=== PATIENT | female | born 1940 | race Caucasian/White ===

== ENCOUNTER 2019-08-15 12:18 | Observation (INO) | payer MEDICARE, MEDICAID, SELFPAY ==
[2019-08-15] VITALS (16 sets, daily range): BP systolic 127–193; BP diastolic 55–109; PULSE 61–120; RESP 12–20; TEMP 36.4–37; O2SAT 96–100; BMI 29.7; BMI 29.3
--- NOTE | ~2019-08-15 | XR_ITS ---
EXAMINATION: XR chest 2V EXAM DATE: 08/15/2019 12:47 INDICATION: Syncope, palpitation, shortness of breath. TECHNIQUE: Frontal and lateral projections of the chest obtained and reviewed. Comparison is made to prior examination from 11/25/2014, 12/05/2011. FINDINGS: There is patchy bibasilar airspace disease, most likely bronchopneumonia. Please clinically correlate. Cardiomediastinal silhouette is normal. There is no pneumothorax suspected. There are no pleural effusions. There are bony degenerative changes. IMPRESSION: Patchy bibasilar airspace disease probably bronchopneumonia. Clinical correlation. Reviewed, dictated and finalized at location A. IMPRESSION: Patchy bibasilar airspace disease probably bronchopneumonia. Clini margo correlation.
--- NOTE | 2019-08-15 12:23 | ECG_ITS ---
Measurements Intervals [place] Rate: 134 P: 73 DE: 180 QRS: -6 QRSD: 68 T: 45 QT: 329 QTc: 492 Interpretive Statements SINUS RHYTHM WITH SHORT RUNS OF ATRIAL TACHYCARDIA RSR' IN V1 OR V2, CONSIDER RIGHT VENTRICULAR HYPERTROPHY OR RIGHT VCD BASELINE ARTIFACT- I, II, III, AVR, AVL, AVF, V1-V2 ABNORMAL ECG Electronically Signed On 08-15-2019 13:52:38 CDT by Dickson Ware D.O.
--- NOTE | 2019-08-15 12:26 | ED.ARRPALP ---
HPI - Arrhythmia/Palpitations General Chief Complaint: Arrhythmia/Palpitations Stated Complaint: SOB Time Seen by Provider: 08/15/19 12:24 Source: patient and RN notes reviewed Mode of arrival: EMS Limitations: no limitations History of Present Illness HPI narrative: Pt is a 79 y/o female who presents to the ED via EMS with c/o intermittent heart palpitations starting roughly 2 weeks ago. She notes that she has had intermittent SOB and palpitations for the past 2 weeks. Pt describes her palpitations as a thudding in her chest, and notes that her heart feels like it is skipping beats. She notes that she developed palpitations and lightheadedness while at home this morning, which prompted her family to call EMS. Pt states that her symptoms are currently resolved while in the ED bed. She also reports recent lower ABD pain and urinary frequency, but denies any CP. Pt states that she was recently placed on a heart monitor, and notes that it showed no significant abnormalities. MD complaint: skipped beats Onset (ago): week(s) (2) Duration: intermittent Associated symptoms: shortness of breath and other (lightheadedness; lower ABD pain; urinary frequency) Related Data Home Medications Medication Instructions Recorded Confirmed B Complex 08/15/19 Fish Oil Concentrate 08/15/19 Vitamin D3 08/15/19 aspirin [Aspirin Childrens] 81 mg PO DAILY 08/15/19 08/15/19 levothyroxine DAILY 08/15/19 Allergies Allergy/AdvReac Type Severity Reaction Status Date / Time Sulfa (Sulfonamide Allergy Mild Rash Verified 08/15/19 13:55 Antibiotics) Review of Systems Review of Systems: All systems reviewed & are unremarkable except as noted in HPI and below Cardiovascular: Cardiovascular: Denies chest pain and Reports palpitations Respiratory: Respiratory: Reports dyspnea Gastrointestinal: Gastrointestinal: Reports abdominal pain (lower ABD pain) Genitourinary: Genitourinary: Reports other (urinary frequency) Neurologic: Reports other (lightheadedness) [facility] Past Medical History Medical History Back pain History of palpitations Hypothyroidism Surgical History Surgical History History of hysterectomy Hx of appendectomy Social History Social History Smoking status: Never smoker Gender identity (if verbalized by the patient): Female Exam Const: General: healthy appearing and no acute distress Nutritional Appearance: well nourished Resp: Effort & Inspection: normal respiratory effort Auscultation: clear to auscultation bilaterally Cardio: Rate: regular rate Rhythm: regular rhythm Heart sounds: no murmurs GI: GI Palp: Yes Soft to palpation and No Tenderness to palpation present (GI) Auscultation: normal bowel sounds Back/Spine/Pelvis: Back: other (Full ROM) Skin: General skin exam: normal color, dry skin and other (warm) Neuro: General: patient oriented x3 (alert) Speech: normal speech Extrem: General: full ROM Psych: Mental Status: mental status grossly normal Affect: normal affect Course Consultations Consultation #1: Discussed case with [employer] to flight test engineer, Pilar Jeong. She will see the pt as a consult. Date: 08/15/19 Time: 13:23 Consultation #2: Discussed case with [employer] to hospitalist, Oksana Sanchez. Accepted admission. Date: 08/15/19 Time: 13:48 Vital Signs Vital signs: Vital Signs Temperature 36.4 C 08/15/19 12:24 Pulse Rate 95 08/15/19 12:24 Respiratory Rate 12 08/15/19 12:24 Blood Pressure 193/96 H 08/15/19 12:24 Pulse Oximetry 99 08/15/19 12:24 Temperature 36.4 C 08/15/19 12:24 Pulse Rate 80 08/15/19 13:31 Respiratory Rate 13 08/15/19 13:31 Blood Pressure 148/72 H 08/15/19 13:31 Pulse Oximetry 98 08/15/19 13:31 MDM - Arrhythmia/Palpitations MDM Narrative Medical decision making narrative: on my exam she had
[2019-08-15 13:11] LABS: Basophils Percent Auto 0.5 % (0.2-1.2); Eosinophils Absolute Auto 0.1 K/mm3 (0-0.3); Eosinophils Percent Auto 1.1 % (0-4.4); Hematocrit 43.6 % (37.0-47.0); Hemoglobin 14.9 g/dL (12.0-15.0); Immature Granulocyte Absolute 0.03 K/mm3 (0.00-0.031); Immature Granulocyte Percent A 0.4 % (0-0.5); Lymphocytes Absolute Auto 1.53 K/mm3 (0.9-3.2); Lymphocytes Percent Auto 17.9 % (18.3-44.2); Mean Corpuscular HGB Conc 34.2 g/dl (32-36); Mean Corpuscular Hemoglobin 30.1 pg (26-34); Mean Corpuscular Volume 88.1 fl (80-100); Mean Platelet Volume 11.1 fl (7.4-10.4); Monocytes Absolute Auto 0.7 K/mm3 (0.1-0.6); Monocytes Percent Auto 7.7 % (2.6-8.5); Neutrophils Absolute Auto 6.2 K/mm3 (1.3-6.7); Neutrophils Percent Auto 72.4 % (45.5-73.1); Platelet Count Result 185 k/mm3 (150-375); Red Blood Count 4.95 M/mm3 (4.2-5.4); Red Cell Distribution Width 13.7 % (11.5-14.5); White Blood Count 8.6 K/mm3 (4.5-10.0)
[2019-08-15 13:18] LABS: INR 0.9; Prothrombin Time 12.1 Seconds (11.1-14.7)
[2019-08-15 13:19] LABS: Partial Thromboplastin Time 26.1 SECONDS (22.3-36.8)
[2019-08-15 13:21] LABS: Blood Urea Nitrogen 15 mg/dL (7-17); Calcium 9.5 mg/dL (8.4-10.2); Carbon Dioxide 25 mmol/L (22-30); Chloride 108 mmol/L (98-107); Estimated CRCL calculation 73 ml/min; Estimated Glomerular Filt Rate > 60; Glucose 112 mg/dL (65-105); Potassium 4.2 mmol/L (3.4-5.0); Sodium 139 mmol/L (137-145)
[2019-08-15 13:33] LABS: Troponin I < 0.012 ng/mL (0.000-0.034)
[2019-08-15] MEDS: DILTIAZEM HCL 30 MG TABLET PO (14:15)
--- NOTE | 2019-08-15 15:49 | ADMGEN ---
This patient, Brandy Omalley, was admitted to IMU Room 214-01. Patient/family oriented to hospital policies and general routines including ID bracelet, bed and alarms, visiting hours, pain management, procedures, bathroom and other care routines, personal items, smoking policy, room service/diet, and visiting hours. Valuables list has been completed. Information on how to activate the Rapid Response Team has been discussed. Patient/Family are encouraged to report perceived risks to care and to ask questions if they do not understand what they are told or what they should do.
[2019-08-15 16:57] LABS: Troponin I < 0.012 ng/mL (0.000-0.034)
--- NOTE | 2019-08-15 17:15 | PM.IMHP ---
H&P: HPI History of Present Illness Chief complaint: atrial fibrillation with rvr Narrative: Brandy Omalley is a 79 year old female With a history of hypothyroidism. She has been complaining of some intermittent heart palpitations that started roughly 2 weeks ago. She had some intermittent shortness of breath as well. The patient stated that she irregular heartbeat a long time ago when she had some problems with her thyroid. She said what she started thyroid medicine a [place] level now. She has not had any past history of atrial fibrillation. She said she had an echo recently but was not sure the exact date. Patient was found to be in AFib RVR in the emergency room and was given 1 dose of IV Cardizem. Cardiology has been consulted. She has a chads Vasc score of 3. Patient is now sinus rhythm. Date of service 08/15/2019 Chest x-ray was read as patchy bibasilar airspace disease probably bronchial pneumonia. Clinical correlation. Patient has no fever and no chills no white count. Does not appear to be pneumonia. She has no cough. Patient stated that she felt a little dizzy earlier and felt like she was going to pass out. She was also short of breath but had no chest pain. Review of Systems Review of Systems: All systems reviewed & are unremarkable except as noted in HPI and below Constitutional: Constitutional: Reports as per HPI and Reports no additional constitutional complaints Eyes: Eyes: Reports as per HPI and Reports no additional eye complaints ENT: Reports system reviewed and no additional complaints, except as documented and Reports Normal hearing present Cardiovascular: Cardiovascular: Reports no additional cardiovascular complaints Respiratory: Respiratory: Reports no additional respiratory complaints and Reports no additional respiratory complaints Gastrointestinal: Gastrointestinal: Reports as per HPI and Reports no additional gastrointestinal complaints Musculoskeletal: Musculoskeletal: Reports no additional musculoskeletal complaints Integumentary/Breasts: Skin/Breast: Reports system reviewed and no additional complaints, except as docu and Reports as per HPI Neurologic: Reports system reviewed and no additional complaints, except as documented, Reports as per HPI and Reports Normal hearing present Psychiatric: Psychiatric: Reports no additional psychiatric complaints and Reports as per HPI Endocrine: Endocrine: Reports no additional endocrine complaints Hematologic/Lymphatic: Hematologic/Lymphatic: Reports no additional hematologic/lymphatic complaints Allergic/Immunologic: Allergic/Immunologic: Reports no additional allergic/immunologic complaints [facility] Past Medical History Medical History (Updated 08/15/19 @ 17:20 by Oksana Sanchez NP) Back pain Fractured hip She had a small crack which was not repaired. History of palpitations Hypothyroidism Surgical History Surgical History History of hysterectomy Hx of appendectomy Family History Family History (Updated 08/15/19 @ 17:21 by Oksana Sanchez NP) Mother Autoimmune adrenal atrophy Thyroid disease Father Pancreatic cancer COPD (chronic obstructive pulmonary disease) Sibling Heart disease Social History Social History (Updated 08/15/19 @ 17:22 by Oksana Sanchez NP) Social History: Patient had lifelong exposure to smoke but did not smoke herself. She has 3 sons. She does not have a power commercial attorney. She desires to be a full code. 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 No alcohol or illicit drugs. Her sister staying with her at this time. Smoking status: Never smoker Second hand tobacco smoke exposure: Yes Alcohol intake: never Substance use: never Substance use type: does not use Living arrangements: with family Occupation/Education: retired Gender identity (if verbalized by the patient): Female Spiritual care concerns: No Agree to bloo
--- NOTE | 2019-08-15 17:42 | PM.CNCAR ---
Assessment and Plan Assessment and plan (1) Atrial fibrillation: Qualifiers: Atrial fibrillation type: paroxysmal Qualified Code(s): I48.0 - Paroxysmal atrial fibrillation Code(s): I48.91 - Unspecified atrial fibrillation Status: Acute Assessment and Plan: Back in sinus rhythm. She has a chads Vasc score of 3 given her age and gender. She has a chads score of 1. I did talk about the risks benefits alternatives and she is agreeable to starting anticoagulation. She has very low bleeding risk. I did talk to her about other anticoagulants also she is agreeable to start Xarelto 20 mg p.o. daily. I will start her on metoprolol tartrate 25 mg p.o. b.i.d. Will check a TSH as well as a free T4 level. 2D echocardiogram Doppler will be ordered and reviewed. Anticipate discharge home tomorrow morning. Outpatient stress testing and follow up with Dr. Jaramillo She also does not need fish oil nor aspirin if she starts on anticoagulation. He relatively should be discontinued. Continue levothyroxine and vitamin-D (2) Hypothyroidism: Code(s): E03.9 - Hypothyroidism, unspecified Status: Chronic Assessment and Plan: Will check a T4 level. History of Present Illness History of Present Illness Consult date/time: 08/15/19 17:42 Requesting physician: Oksana Sanchez NP Consult reason: atrial fibrillation Reason For Visit: atrial fibrillation with rvr Narrative: Date of service 08/15/2019 Reason for visit atrial fibrillation History: Patient is an 79-year-old female patient of Dr. Jaramillo who had a history of palpitations. Over the past 2 weeks he has had pretty consistent thumping in her chest. Her symptoms are worsened with exertion and she would feel presyncopal with significant activity. She would rest her symptoms would improve. She would also have some significant shortness of breath at the same time. No syncope. Patient does have some lower extremity edema which is under different has been present for about 10 years. She denies any paroxysmal nocturnal dyspnea, orthopnea, syncope. No exertional chest pain. She came to the hospital and was found to be in atrial fibrillation with rapid ventricular response. She was given diltiazem in her rhythm converted back to sinus rhythm here she currently remains. She currently feels fine. She has a chads Vasc score 3 Review of Systems Review of Systems: All systems reviewed & are unremarkable except as noted in HPI and below Constitutional: Constitutional: Denies chills Eyes: Eyes: Denies blurry vision ENT: Denies tinnitus Cardiovascular: Cardiovascular: Reports palpitations Respiratory: Respiratory: Denies cough Gastrointestinal: Gastrointestinal: Denies bloating Genitourinary: Genitourinary: Denies flank pain Musculoskeletal: Musculoskeletal: Denies back pain Integumentary/Breasts: Skin/Breast: Denies dry skin Neurologic: Denies headache(s) Psychiatric: Psychiatric: Denies anxiety and Denies confusion Endocrine: Endocrine: Denies fatigue Hematologic/Lymphatic: Hematologic/Lymphatic: Denies easy bruising Allergic/Immunologic: Allergic/Immunologic: Denies lip swelling PMFSH Past Medical History Medical History Back pain Fractured hip She had a small crack which was not repaired. History of palpitations Hypothyroidism Surgical History Surgical History History of hysterectomy Hx of appendectomy Family History Family History Mother Autoimmune adrenal atrophy Thyroid disease Father Pancreatic cancer COPD (chronic obstructive pulmonary disease) Sibling Heart disease Social History Social History Social History: Patient had lifelong exposure to smoke but did not smoke herself. She has 3 so
[2019-08-15] MEDS: RIVAROXABAN 20 MG TABLET PO (18:56)
[2019-08-15 19:33] LABS: Troponin I < 0.012 ng/mL (0.000-0.034)
[2019-08-15 19:52] LABS: Free T4 Free Thyroxine 0.74 ng/mL (0.78-2.19)
[2019-08-15] MEDS: METOPROLOL TARTRATE 25 MG TABLET PO (20:40)
[2019-08-16] VITALS (8 sets, daily range): BP systolic 113–118; BP diastolic 47; PULSE 60–70; RESP 16–20; TEMP 36.6; O2SAT 93–99
--- NOTE | 2019-08-16 | ECHO_ITS ---
Patient Info Name: Brandy Omalley Age: 79 years : 1940 Gender: Female Ht: 70 in Wt: 202 lbs BSA: 2.15 m2 HR: 62 bpm BP: 113 / 47 mmHg Heart Rhythm: Sinus Rhythm Technical Quality: Good Exam Date: 08/16/2019 9:23 AM Exam Location: [facility] Patient Status: Inpatient Admit Date: 08/15/2019 Staff Ordering Physician: Clive Reagan MD Sergeant Of Officers: Deni Wood RDCS Attending Provider: Viridiana Zaldivar PA-C Referring Physician: Merary SAUER; Exam Type: CA echo doppler color flow Study Info Indications I48.0 - Paroxysmal atrial fibrillation Complete two-dimensional, color flow and Doppler transthoracic echocardiogram is performed. History/Risk Factors Atrial Fibrillation. Summary 1. Left ventricular chamber dimension is normal. 2. Left ventricular systolic function is normal, estimated at >70%. 3. There is mildly increased left ventricular wall thickness. 4. Left ventricular septal wall motion is normal. 5. The left ventricular diastolic function is grade I diastolic dysfunction. 6. Left atrial chamber dimension is mildly enlarged. 7. There is mild aortic valve calcification. 8. There is mild aortic valve regurgitation. 9. There is mild tricuspid valve regurgitation. Left Ventricle Left ventricular chamber dimension is normal. Left ventricular systolic function is normal, estimated at >70%. There is mildly increased left ventricular wall thickness. Left ventricular septal wall motion is normal. The left ventricular diastolic function is grade I diastolic dysfunction. Right Ventricle Right ventricular chamber dimension is normal. Right ventricular systolic function is normal. Left Atria Left atrial chamber dimension is mildly enlarged. Right Atria Right atrial chamber dimension is normal. Aortic Valve The aortic valve is trileaflet. There is no aortic valve stenosis. There is mild aortic valve regurgitation. There is mild aortic valve calcification. Pulmonic Valve The pulmonic valve is normal. There is no pulmonic valve stenosis. There is trace pulmonic regurgitation. Mitral Valve The mitral valve has calcified annulus. There is no mitral valve stenosis. There is trace mitral valve regurgitation. Tricuspid Valve The tricuspid valve leaflets are normal. There is no significant tricuspid valve stenosis. There is mild tricuspid valve regurgitation. No pulmonary hypertension, estimated pulmonary arterial systolic pressure is 33 mmHg. Pericardium/Pleural The pericardium appears epicardial fat pad. There is no pericardial effusion. Aorta The aortic root size at the sinus of Valsalva is normal. Left Ventricular Outflow Tract Name Value Normal LVOT 2D LVOT Diameter 1.7 cm LVOT Doppler LVOT Peak Gradient 6 mmHg LVOT Mean Gradient 3 mmHg LVOT VTI 24 cm LVOT VTI/AV VTI Ratio 0.7 LVOT Stroke Volume 56 ml LVOT CO 3.6 l/min LVOT
[2019-08-16 05:13] LABS: Basophils Absolute Auto 0.1 K/mm3 (0.0-0.1); Basophils Percent Auto 0.8 % (0.2-1.2); Eosinophils Absolute Auto 0.1 K/mm3 (0-0.3); Eosinophils Percent Auto 1.8 % (0-4.4); Hematocrit 37.7 % (37.0-47.0); Hemoglobin 12.7 g/dL (12.0-15.0); Immature Granulocyte Absolute 0.01 K/mm3 (0.00-0.031); Immature Granulocyte Percent A 0.2 % (0-0.5); Lymphocytes Absolute Auto 1.43 K/mm3 (0.9-3.2); Lymphocytes Percent Auto 22.9 % (18.3-44.2); Mean Corpuscular HGB Conc 33.7 g/dl (32-36); Mean Corpuscular Volume 89.1 fl (80-100); Monocytes Absolute Auto 0.5 K/mm3 (0.1-0.6); Monocytes Percent Auto 8.5 % (2.6-8.5); Neutrophils Absolute Auto 4.1 K/mm3 (1.3-6.7); Neutrophils Percent Auto 65.8 % (45.5-73.1); Platelet Count Result 174 k/mm3 (150-375); Red Blood Count 4.23 M/mm3 (4.2-5.4); White Blood Count 6.2 K/mm3 (4.5-10.0)
[2019-08-16] MEDS: LEVOTHYROXINE SODIUM 112 MCG TABLET BY MOUTH (05:38)
[2019-08-16] MEDS: LEVOTHYROXINE SODIUM 25 MCG TABLET BY MOUTH (05:38)
[2019-08-16 05:41] LABS: Alanine Aminotransferase 16 U/L (4-35); Albumin Level 3.4 g/dL (3.5-5.1); Alkaline Phosphatase 72 U/L (38-126); Aspartate Amino Transferase 18 U/L (14-36); Bilirubin,Total 0.5 mg/dL (0.2-1.3); Blood Urea Nitrogen 17 mg/dL (7-17); Calcium 8.7 mg/dL (8.4-10.2); Carbon Dioxide 26 mmol/L (22-30); Chloride 108 mmol/L (98-107); Estimated CRCL calculation 66 ml/min; Estimated Glomerular Filt Rate > 60; Glucose 96 mg/dL (65-105); Magnesium 2.1 mg/dL (1.6-2.3); Potassium 3.8 mmol/L (3.4-5.0); Sodium 138 mmol/L (137-145)
[2019-08-16] MEDS: METOPROLOL TARTRATE 25 MG TABLET PO (10:24)
[2019-08-16] MEDS: ASPIRIN 81 MG CHEWABLE TABLET PO (10:24)
--- NOTE | 2019-08-16 10:46 | PM.PNCARD ---
Progress Note: A&P Assessment and Plan (1) Atrial fibrillation: Qualifiers: Atrial fibrillation type: paroxysmal Qualified Code(s): I48.0 - Paroxysmal atrial fibrillation Code(s): I48.91 - Unspecified atrial fibrillation Status: Acute Assessment and Plan: Patient is stable to go home. She should remain on Xarelto 20 mg p.o. daily as well as metoprolol 25 mg p.o. b.i.d.. Discontinue fish oil as well as aspirin. Continue levothyroxine. Outpatient follow-up with Dr. PERDOMO. OUTPATIENT STRESS TESTING PERFORMED (2) Hypothyroidism: Code(s): E03.9 - Hypothyroidism, unspecified Status: Chronic Subjective Date/time seen: Reason for admission: Atrial fibrillation Date of service 08/16/2019: She feels well and denies any chest pain or shortness of breath. No palpitations. Review of Systems Review of Systems: All systems reviewed & are unremarkable except as noted in HPI and below Constitutional: Constitutional: Denies chills, Denies fatigue and Denies headache(s) Eyes: Eyes: Denies blurry vision ENT: Denies headache(s), Denies lip swelling and Denies tinnitus Cardiovascular: Cardiovascular: Reports palpitations Respiratory: Respiratory: Denies cough Gastrointestinal: Gastrointestinal: Denies bloating Genitourinary: Genitourinary: Denies flank pain Musculoskeletal: Musculoskeletal: Denies back pain Integumentary/Breasts: Skin/Breast: Denies dry skin Neurologic: Denies confusion and Denies headache(s) Psychiatric: Psychiatric: Denies anxiety and Denies confusion Endocrine: Endocrine: Denies fatigue and Reports palpitations Hematologic/Lymphatic: Hematologic/Lymphatic: Denies easy bruising Allergic/Immunologic: Allergic/Immunologic: Denies lip swelling Exam Narrative: Exam Narrative: Alert oriented Const: General: comfortable; No confusion Orientation/consciousness: No confusion HENMT: Mouth: No dry mucous membranes Eyes: Sclera: abnormal sclerae Neck: Neck: supple and no JVD Chest: Other: No chest wall pain on palpation Resp: Auscultation: clear to auscultation bilaterally Cardio: Rate: regular rate Rhythm: regular rhythm Skin: General skin exam: normal color Neuro: General: No confusion Cognition (Neuro): normal cognition Speech: normal speech Extrem: General: normal to inspection, normal exam except as noted, no edema and no pedal edema Psych: Mental Status: mental status grossly normal Affect: normal affect Objective Data Vital Signs Vital Signs: Vital Signs - 24 hr 08/15/19 12:24 08/15/19 12:26 08/15/19 12:30 Temperature 36.4 C Pulse Rate 95 120 H Respiratory Rate 12 13 Blood Pressure 193/96 H 193/96 H Pulse Oximetry 99 99 99 08/15/19 12:31 08/15/19 13:00 08/15/19 13:16 Temperature Pulse Rate 90 85 80 Respiratory Rate 13 14 12 Blood Pressure 176/109 H 137/70 145/80 H Pulse Oximetry 99 100 99 08/15/19 13:30 08/15/19 13:31 08/15/19 14:58 Temperature Pulse Rate 72 80 71 Respiratory Rate 14 13 19 Blood Pressure 148/72 H 133/71 Pulse Oximetry 99 98 96 08/15/19 15:43 08/15/19 16:00 08/15/19 18:00 Temperature 36.7 C 37.0 C Pulse Rate 74 70 83 Respiratory Rate 20 18 Blood Pressure 130/56 L 131/55 L Pulse Oximetry 96 98 08/15/19 20:00 08/15/19 20:40 08/15/19 22:00 Temperature 37.0 C Pulse Rate 71 71 71 Respiratory Rate 18 Blood Pressure 131/55 L Pulse Oximetry 98 08/15/19 23:56 08/16/19 00:00 08/16/19 01:24 Temperature 36.4 C Pulse Rate 61 63 62 Respiratory Rate 20 20 Blood Pressure 127/61 Pulse Oximetry 97 97 08/16/19 03:59 08/16/19 04:00 08/16/19 06:00 Temperature 36.6 C Pulse Rate 60 68 60 Respiratory Rate 20 20 Blood Pressure 113/47 L Pulse Oximetry 97 99 08/16/19 08:00 08/16/19 10:24 Temperature 36.6 C Pulse Rate 63 62 Respiratory Rate 16 Blood Pressure 118/47 L Pulse Oximetry 93 Intake/Output Intake/Output: Intake & Output
--- NOTE | 2019-08-16 12:16 | PM.DS ---
DS: Diagnosis Admitting Diagnosis Admitting Diagnosis: Paroxysmal atrial fibrillation Discharge Diagnosis (1) Atrial fibrillation: Qualifiers: Atrial fibrillation type: paroxysmal Qualified Code(s): I48.0 - Paroxysmal atrial fibrillation Code(s): I48.91 - Unspecified atrial fibrillation Status: Acute Assessment and Plan: The patient had symptoms of palpitations with associated dizziness and presyncopal episode. Denies syncope. She was given IV Cardizem in the emergency room and converted back into normal sinus rhythm. She was initially started on subcu Lovenox for anticoagulation. Normal TSH Echocardiogram is still pending but the wildlife refuge manager has evaluated. Cardiology evaluated the patient and started her on metoprolol tartrate 25 mg b.i.d. and Xarelto 20 mg daily Cardiology recommended discontinuing the patient's aspirin and fish oil. She will follow-up with the wildlife refuge manager as outpatient for further evaluation. (2) Hypothyroidism: Code(s): E03.9 - Hypothyroidism, unspecified Status: Chronic Assessment and Plan: Normal TSH. Continue levothyroxine (3) Back pain: Code(s): M54.9 - Dorsalgia, unspecified Status: Chronic Assessment and Plan: Patient is currently not on any medication at this time. DS: Summary Hospital Course Reason for hospitalization: The patient is an 79-year-old woman with a history of hypothyroidism, who presented to the emergency department with intermittent episodes of palpitations over the last year so with more frequent episodes and associated symptoms of lightheadedness, shortness of breath over the last 1 week. Initial vitals showed, temperature of 97.6?, blood pressure 193/96, heart rate 95, respiratory rate 12, oxygen saturation 99% on room air. Initial labs showed, normal CBC, normal coag panel, normal BMP. Negative troponin x2. Normal TSH in slightly low T4 at 0.74. Chest x-ray showed bilateral airspace disease probably bronchial pneumonia, but the patient has no symptoms of productive cough, fever, chills, shortness of breath now that she is back in normal sinus rhythm. The patient was found to be in atrial fibrillation on arrival to the emergency department. The patient was given IV Cardizem and converted back into normal sinus rhythm. Cardiology place her on metoprolol tartrate 25 mg twice a day and Xarelto. The patient understands agrees the plan at this time all questions answered. Status at Discharge Cognitive/behavioral status at discharge: Stable, improved. Time Spent with Patient Time attestation: Total time spent providing and/or coordinating discharge services: Time spent: Greater than 30 minutes Exam Narrative: Exam Narrative: General: 79-year-old woman laying flat in bed watching TV. Appears comfortable. In no acute distress. Skin: No jaundice or cyanosis. Good skin turgor. Neck: Full range of motion. Supple. Respiratory: Lungs are clear to auscultation bilaterally. No bony chest wall tenderness. Cardiovascular: The heart has a regular rate and rhythm without murmur. Lower extremities: No lower extremity edema. Distal pulses are easily palpated. No calf tenderness to palpation. Gastrointestinal: The abdomen is soft, nontender and nondistended with active bowel sounds. Psychiatric: Lucid and oriented. Memory intact. Neurologic: No focal deficits. Speech is clear. No facial drooping. DS: Data Data Completed and Pending Labs on day of discharge: Labs from last 24 hours 08/16/19 08/16/19 08/16/19 04:32 04:32 04:32 WBC 6.2 RBC 4.23 Hgb 12.7 Hct 37.7 MCV 89.1 MCH 30.0 MCHC 33.7 RDW 14.0 Plt Count 174 MPV 11.0 H Immature Gran % (Auto) 0.2 Neut % (Auto) 65.8 Lymph % (Auto) 22.9 [place] % (Auto) 8.5 Eos
== END 2019-08-16 14:15 | disposition home or self-care (01) ==
LOC: ANHED 13:59 → ANHIMU 14:40
PROVIDERS: Emergency Medicine; Internal Medicine Cardiovascular Disease; Nurse Practitioner; Admitting Provider Internal Medicine; Emergency Provider Emergency Medicine; Visit Provider Physician Assistant
DX: I48.0 Paroxysmal atrial fibrillation (principal); E03.9 Hypothyroidism, unspecified; M54.9 Dorsalgia, unspecified
CPT/HCPCS: 36415; 71046; 80048; 80053; 83735; 84439; 84443; 84484; 85025; 85610; 85730; 93005; 93306; 96374; 96376; 99285; A9270; G0378

== ENCOUNTER 2019-08-23 10:05 | Emergency (ER) | payer MEDICARE, MEDICAID, SELFPAY ==
--- NOTE | ~2019-08-23 | XR_ITS ---
EXAMINATION: XR chest 2V DATE: 08/23/2019 10:54 INDICATION: Chest heaviness and shortness of breath TECHNIQUE: PA and lateral views of the chest are obtained. COMPARISON: 08/15/2019 FINDINGS: The lungs are free of acute opacities. Previously described bibasilar airspace opacities chacko ve resolved. There is no pleural effusion or pneumothorax. The cardiomediastinal silhouette is normal . There is moderate thoracic spondylosis. IMPRESSION: 1. No acute cardiopulmonary abnormality. Reviewed, dictated and finalized at location B.
[2019-08-23 10:14] VITALS: BP 183/76; PULSE 57; RESP 12; TEMP 37; O2SAT 98
--- NOTE | 2019-08-23 10:42 | ED.ARRPALP ---
HPI - Arrhythmia/Palpitations General Chief Complaint: Arrhythmia/Palpitations <April Gerene PA-C - Last Filed: 08/23/19 14:56> Stated Complaint: PALPITATIONS <AMANDA Hemphill Last Filed: 08/23/19 14:56> Time Seen by Provider: 08/23/19 10:21 <AMANDA Hemphill Last Filed: 08/23/19 14:56> Source: patient <AMANDA Hemphill Last Filed: 08/23/19 14:56> Mode of arrival: EMS <AMANDA Hemphill Last Filed: 08/23/19 14:56> Limitations: no limitations <AMANDA Hemphill Last Filed: 08/23/19 14:56> History of Present Illness HPI narrative: This is an 79 year old female that presents to the ER for palpitations since last night. Reports she was hospitalized here and diagnosed with Afib recently. Reports she was started on Metoprolol and a blood thinner. Reports since she had been feeling much better, but last night again started to feel thudding in her chest, some heaviness and shortness of breath. Reports these symptoms lasted all night. Reports now she just doesn't feel well overall. Does also report some urinary frequency that has been ongoing for the last week. Denies fever, cough, congestion, sore throat, dysuria or hematuria. <April Greene PA-C - Last Filed: 08/23/19 14:56> Related Data Home Medications: Home Medications Medication Instructions Recorded Confirmed cholecalciferol (vitamin D3) 1,000 unit PO DAILY 08/15/19 08/15/19 [Vitamin D3] levothyroxine 137 mcg PO DAILY 08/15/19 08/15/19 vitamin B complex-folic acid [B 1 tablet PO DAILY 08/15/19 08/15/19 Complex 100] <AMANDA Hemphill Last Filed: 08/23/19 14:56> Allergies/Adverse Reactions: Allergies Allergy/AdvReac Type Severity Reaction Status Date / Time Sulfa (Sulfonamide Allergy Mild Rash Verified 08/15/19 13:55 Antibiotics) <AMANDA Hemphill Last Filed: 08/23/19 14:56> Review of Systems Review of Systems: Narrative: CONSTITUTIONAL: Denies fever, chills ENT: Denies rhinorrhea, congestion, sore throat CARDIOVASCULAR: Reports palpitations. Denies chest pain or edema. RESPIRATORY: Reports dyspnea. Denies cough GENITOURINARY: Denies dysuria or hematuria. NEUROLOGIC: Denies numbness, or weakness. <April Greene PA-C - Last Filed: 08/23/19 14:56> All systems reviewed & are unremarkable except as noted in HPI and below <April Greene PA-C - Last Filed: 08/23/19 14:56> [facility] Past Medical History Medical History: Medical History (Updated 08/23/19 @ 14:56 by April Greene PA-C) Atrial fibrillation Back pain Fractured hip She had a small crack which was not repaired. History of palpitations Hypothyroidism <April Greene PA-C - Last Filed: 08/23/19 14:56> Surgical History Surgical History: Surgical History History of hysterectomy Hx of appendectomy <April Greene PA-C - Last Filed: 08/23/19 14:56> Social History Social History: Social History Social History: Patient had lifelong exposure to smoke but did not smoke herself. She has 3 sons. 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 She desires to be a full code. 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 No alcohol or illicit drugs. Her sister staying with her at this time. Smoking status: Never smoker Second hand tobacco smoke exposure: Yes Alcohol intake: never Substance use: never Substance use type: does not use Gender identity (if verbalized by the patient): Female Spiritual care concerns: No Agree to blood products: Yes <April Greene PA-C - Last Filed: 08/23/19 14:56> Exam Narrative: Exam Narrative: GENERAL: Elderly, well-nourished, and in no acute distress. HEAD: Normocephalic, atraumatic. EYES: PERRLA and EOMI. ENT: Nares clear, no rhinorrhea or epistaxis. Mucous membranes moist. Oropharynx without tonsillar hy
[2019-08-23 10:47] VITALS: BP 173/76; PULSE 56; RESP 13; TEMP 36.7; O2SAT 98
--- NOTE | 2019-08-23 10:51 | ECG_ITS ---
Measurements Intervals [place] Rate: 55 P: 45 DE: 175 QRS: -27 QRSD: 78 T: 23 QT: 423 QTc: 407 Interpretive Statements SINUS BRADYCARDIA LOW QRS VOLTAGE IN PRECORDIAL LEADS BASELINE ARTIFACT- I, III, AVR, AVL, AVF, V4 BORDERLINE ECG Electronically Signed On 08-23-2019 10:58:45 CDT by Dickson Ware D.O.
--- NOTE | 2019-08-23 10:51 | PC.NURSE ---
pt to xray via stretcher
[2019-08-23 11:00] LABS: Basophils Absolute Auto 0.1 K/mm3 (0.0-0.1); Basophils Percent Auto 0.8 % (0.2-1.2); Eosinophils Absolute Auto 0.1 K/mm3 (0-0.3); Eosinophils Percent Auto 2.2 % (0-4.4); Hematocrit 40.2 % (37.0-47.0); Hemoglobin 13.5 g/dL (12.0-15.0); Immature Granulocyte Absolute 0.03 K/mm3 (0.00-0.031); Immature Granulocyte Percent A 0.5 % (0-0.5); Lymphocytes Absolute Auto 0.99 K/mm3 (0.9-3.2); Lymphocytes Percent Auto 16.4 % (18.3-44.2); Mean Corpuscular HGB Conc 33.6 g/dl (32-36); Mean Corpuscular Hemoglobin 30.1 pg (26-34); Mean Corpuscular Volume 89.5 fl (80-100); Mean Platelet Volume 10.9 fl (7.4-10.4); Monocytes Absolute Auto 0.4 K/mm3 (0.1-0.6); Monocytes Percent Auto 6.1 % (2.6-8.5); Neutrophils Absolute Auto 4.5 K/mm3 (1.3-6.7); Platelet Count Result 211 k/mm3 (150-375); Red Blood Count 4.49 M/mm3 (4.2-5.4); Red Cell Distribution Width 13.6 % (11.5-14.5)
[2019-08-23 11:07] LABS: Blood Urea Nitrogen 13 mg/dL (7-17); Calcium 9.3 mg/dL (8.4-10.2); Carbon Dioxide 25 mmol/L (22-30); Chloride 106 mmol/L (98-107); Estimated CRCL calculation 76 ml/min; Estimated Glomerular Filt Rate > 60; Glucose 108 mg/dL (65-105); Potassium 4.2 mmol/L (3.4-5.0); Sodium 139 mmol/L (137-145)
[2019-08-23 11:09] LABS: INR 1.2; Prothrombin Time 14.4 Seconds (11.1-14.7)
[2019-08-23 11:10] LABS: Partial Thromboplastin Time 30.5 SECONDS (22.3-36.8)
[2019-08-23 11:15] LABS: Add Urine Microscopic? YES; Appearance Urine Clear (Clear); Bacteria Urine Trace /hpf; Bilirubin Urine Negative (Negative); Blood Urine Negative (Negative); Color Urine Straw (Yellow); Glucose Urine UA Negative (Negative); Ketones Urine Negative (Negative); Leukocyte Esterase Ur Trace LEU/UL (Negative); Mucus Urine Rare /lpf; Nitrate Urine Negative (Negative); Protein Urine Negative (Negative); RBC Urine 0-2 /hpf (0-2); Specific Grav Ur 1.011 (1.001-1.035); Squamous Epithelial Cell Urine Few /hpf (Few); Urobilinogen Urine Negative mg/dL (<2.0); WBC Urine 0-3 /hpf
[2019-08-23 11:20] LABS: NT Pro B Type Natriuretic Pept 127 PG/ML (5-100); Troponin I < 0.012 ng/mL (0.000-0.034)
[2019-08-23 12:39] VITALS: BP 152/60; PULSE 54; RESP 18; O2SAT 96
[2019-08-23 14:17] LABS: Troponin I < 0.012 ng/mL (0.000-0.034)
[2019-08-23 15:24] VITALS: BP 148/70; PULSE 55; RESP 14; O2SAT 96
== END 2019-08-23 15:25 | disposition home or self-care (01) ==
PROVIDERS: Physician Assistant; Emergency Provider Emergency Medicine
DX: R00.2 Palpitations (principal); I48.91 Unspecified atrial fibrillation; R06.02 Shortness of breath; Z79.01 Long term (current) use of anticoagulants; E03.9 Hypothyroidism, unspecified; Z77.22 Contact with and (suspected) exposure to environmental tobacco smoke (acute) (chronic); R00.1 Bradycardia, unspecified; R94.31 Abnormal electrocardiogram [ECG] [EKG]
CPT/HCPCS: 36415; 71046; 80048; 81001; 83880; 84484; 85025; 85610; 85730; 93005; 99284

== ENCOUNTER 2019-10-10 18:41 | Emergency (ER) | payer MEDICARE, MEDICAID, SELFPAY ==
[2019-10-10] VITALS (7 sets, daily range): BP systolic 118–197; BP diastolic 60–77; PULSE 54–68; RESP 14–18; TEMP 36.7; O2SAT 97–99
--- NOTE | ~2019-10-10 | XR_ITS ---
EXAMINATION: XR chest 1V portable EXAM DATE: 10/10/2019 19:51 INDICATION: Shortness of breath, headache. TECHNIQUE: Portable AP frontal chest x-ray was obtained. Comparison is made to prior examination from 08/23/2019. FINDINGS: The lungs are clear. There are no pleural effusions. Cardiac silhouette is prominent but magnified on this AP technique. There is no pneumothorax suspected. The bones and soft tissues are unremarkable. IMPRESSION: Unremarkable chest x-ray exam. Reviewed, dictated and finalized at location A.
--- NOTE | 2019-10-10 18:55 | ECG_ITS ---
Measurements Intervals [place] Rate: 62 P: 25 MT: 152 QRS: -10 QRSD: 79 T: 31 QT: 383 QTc: 390 Interpretive Statements SINUS RHYTHM CONSIDER INFERIOR INFARCT, AGE INDETERMINATE ABNORMAL ECG Electronically Signed On 10-11-2019 7:09:02 CDT by Dickson Ware D.O.
--- NOTE | 2019-10-10 19:46 | ED.GENADULT ---
HPI - General Adult General Chief complaint: Shortness of Breath/Dyspnea Stated complaint: sob Time Seen by Provider: 10/10/19 19:03 Source: patient and family Mode of arrival: ambulatory Limitations: no limitations History of Present Illness HPI narrative: This patient is an 79 year old female who presents to ER for evaluation of shortness of breath. Patient states she noticed dull bandlike headache along forehead and mu-ism this morning. She checked her blood pressure afterwards and she found her blood pressure was elevated. She also noticed this morning she seemed to be short of breath. This shortness of breath lasted 5 hours but it has since resolved. She denies associated fever, cough, wheezing, edema. She also denies dizziness, visual changes or focal weakness. She called her haunted history tour guide and discussed her symptoms, and she was told to come to ER for evaluation. She states she feels much better now. She only has mild headache. She is concerned because she has not felt well since she was diagnosed with atrial fibrillation in july. She reports fatigue , difficulty sleeping since. She has constant chest heaviness since she was diagnosed with afib. She denies any trauma , melena or bloody stools. Onset (ago): day(s) Location: head Severity scale (1-10): 5 Quality: dull Associated symptoms: malaise Related Data Home Medications Medication Instructions Recorded Confirmed cholecalciferol (vitamin D3) 1,000 unit PO DAILY 08/15/19 08/15/19 [Vitamin D3] levothyroxine 137 mcg PO DAILY 08/15/19 08/15/19 vitamin B complex-folic acid [B 1 tablet PO DAILY 08/15/19 08/15/19 Complex 100] escitalopram oxalate 10 mg PO 10/10/19 lisinopril 5 mg PO 10/10/19 omeprazole 40 mg PO 10/10/19 Allergies Allergy/AdvReac Type Severity Reaction Status Date / Time Sulfa (Sulfonamide Allergy Mild Rash Verified 10/10/19 18:54 Antibiotics) Review of Systems Review of Systems: All systems reviewed & are unremarkable except as noted in HPI and below Constitutional: Constitutional: Denies chills, Reports fatigue and Denies fever(s) Eyes: Eyes: Reports no additional eye complaints and Denies change in vision ENT: Denies dysphagia, Denies dizziness, Denies epistaxis, Denies nasal congestion and Denies sore throat Cardiovascular: Cardiovascular: Reports chest pain (chronic), Denies rapid heart rate, Denies radiating jaw, neck or arm pain and Denies slow heart rate Respiratory: Respiratory: Denies chest congestion, Denies cough, Reports dyspnea and Denies wheezing Gastrointestinal: Gastrointestinal: Denies abdominal pain, Denies diarrhea (change in stool), Denies nausea and Denies vomiting Genitourinary: Genitourinary: Denies abnormal vaginal bleeding, Denies hematuria and Denies flank pain Musculoskeletal: Musculoskeletal: Denies back pain and Denies myalgias Neurologic: Denies vertigo, Denies dizziness, Reports headache(s), Denies focal weakness and Denies numbness PMFSH Past Medical History Medical History Atrial fibrillation Back pain Fractured hip She had a small crack which was not repaired. History of palpitations Hypothyroidism Surgical History Surgical History History of hysterectomy Hx of appendectomy Family History Family History Mother Autoimmune adrenal atrophy Thyroid disease Father Pancreatic cancer COPD (chronic obstructive pulmonary disease) Sibling Heart disease Social History Social History Social History: Patient had lifelong exposure to smoke but did not smoke herself. She has 3 sons. She does not have a power business attorney. She desires to be a full code. 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 No alcohol or illicit drugs. Her sister staying with her at this t
[2019-10-10 19:52] LABS: Basophils Percent Auto 0.6 % (0.2-1.2); Eosinophils Absolute Auto 0.1 K/mm3 (0-0.3); Hematocrit 40.9 % (37.0-47.0); Hemoglobin 13.8 g/dL (12.0-15.0); Immature Granulocyte Absolute 0.01 K/mm3 (0.00-0.031); Immature Granulocyte Percent A 0.2 % (0-0.5); Lymphocytes Absolute Auto 1.23 K/mm3 (0.9-3.2); Lymphocytes Percent Auto 24.3 % (18.3-44.2); Mean Corpuscular HGB Conc 33.7 g/dl (32-36); Mean Corpuscular Hemoglobin 30.6 pg (26-34); Mean Corpuscular Volume 90.7 fl (80-100); Mean Platelet Volume 11.6 fl (7.4-10.4); Monocytes Absolute Auto 0.5 K/mm3 (0.1-0.6); Monocytes Percent Auto 9.5 % (2.6-8.5); Neutrophils Absolute Auto 3.2 K/mm3 (1.3-6.7); Neutrophils Percent Auto 63.4 % (45.5-73.1); Platelet Count Result 168 k/mm3 (150-375); Red Blood Count 4.51 M/mm3 (4.2-5.4); White Blood Count 5.1 K/mm3 (4.5-10.0)
[2019-10-10 20:01] LABS: INR 0.9
[2019-10-10] MEDS: METOPROLOL TARTRATE 50 MG TAB 25 MG PO (20:05)
[2019-10-10 20:13] LABS: Blood Urea Nitrogen 14 mg/dL (7-17); Calcium 9.3 mg/dL (8.4-10.2); Carbon Dioxide 23 mmol/L (22-30); Chloride 107 mmol/L (98-107); Estimated CRCL calculation 59 ml/min; Estimated Glomerular Filt Rate > 60; Glucose 109 mg/dL (65-105); Sodium 137 mmol/L (137-145)
[2019-10-10 20:14] LABS: Alanine Aminotransferase 19 U/L (4-35); Albumin Level 4.4 g/dL (3.5-5.1); Alkaline Phosphatase 62 U/L (38-126); Aspartate Amino Transferase 23 U/L (14-36); Bilirubin,Total 0.3 mg/dL (0.2-1.3); Lipase 74 U/L (23-300)
[2019-10-10 20:17] LABS: NT Pro B Type Natriuretic Pept 108 PG/ML (5-100); Troponin I < 0.012 ng/mL (0.000-0.034)
[2019-10-10 20:35] LABS: Add Urine Microscopic? YES; Appearance Urine Clear (Clear); Bilirubin Urine Negative (Negative); Blood Urine Negative (Negative); Color Urine Yellow (Yellow); Glucose Urine UA Negative (Negative); Ketones Urine Negative (Negative); Leukocyte Esterase Ur Trace LEU/UL (Negative); Mucus Urine Rare /lpf; Nitrate Urine Negative (Negative); Protein Urine Negative (Negative); RBC Urine 0-2 /hpf (0-2); Specific Grav Ur 1.014 (1.001-1.035); Squamous Epithelial Cell Urine Occasional /hpf (Few); Urobilinogen Urine Negative mg/dL (<2.0); WBC Urine 0-3 /hpf
[2019-10-11 13:38] LABS: SARS-CoV-2 RNA PCR Negative
== END 2019-10-10 21:38 | disposition home or self-care (01) ==
PROVIDERS: Emergency Provider General Practice; PCP Family Medicine
DX: I10 Essential (primary) hypertension (principal); R53.83 Other fatigue; Z20.828 Contact with and (suspected) exposure to other viral communicable diseases; Z77.22 Contact with and (suspected) exposure to environmental tobacco smoke (acute) (chronic); I48.91 Unspecified atrial fibrillation; E03.9 Hypothyroidism, unspecified; R94.31 Abnormal electrocardiogram [ECG] [EKG]
CPT/HCPCS: 36415; 71045; 80048; 80076; 81001; 83690; 83880; 84484; 85025; 85610; 85730; 87635; 93005; 96374; 99284; A9270; C9803; J0131; U0003

== ENCOUNTER 2019-11-03 18:20 | Emergency (ER) | payer MEDICARE, MEDICAID, SELFPAY ==
--- NOTE | ~2019-11-03 | XR_ITS ---
EXAMINATION: XR chest 2V DATE: 11/03/2019 20:51 INDICATION: Shortness of breath and abdominal discomfort TECHNIQUE: frontal and lateral views of the chest were obtained. COMPARISON: Chest radiograph dated 10/10/2019 FINDINGS: The lungs remain clear with no focal airspace opacities, pulmonary edema, pleural effusion or pneumot horax. The cardiomediastinal silhouette is normal. Moderate thoracic spondylosis. IMPRESSION: 1. No acute cardiopulmonary disease. Reviewed, dictated and finalized at location A.
--- NOTE | ~2019-11-03 | CT_ITS ---
EXAMINATION: CT brain wo con DATE: 11/03/2019 19:40 INDICATION: Chronic headache TECHNIQUE: Computed tomography (CT) of the head was performed without intravenous contrast. Sagittal and coronal reconstructions were performed. The mA was adjusted according to patient size. Iterative reconstruction technique was employed. The dose-length product was 605.33 mGy-cm. COMPARISON: Brain MR dated 10/03/2017 FINDINGS: No acute intracranial hemorrhage, acute infarction or abnormal extra axial fluid collection. Ventricl es are normal and symmetric. No mass/mass effect. Changes of bilateral intraocular lens replacement. The orbits, paranasal sinuses and mastoid air cells are normal. Intracranial calcified cerebral ather osclerosis is noted. IMPRESSION: 1. Normal aging brain. No acute intracranial process. Reviewed, dictated and finalized at location A.
--- NOTE | 2019-11-03 18:24 | ECG_ITS ---
Measurements Intervals [place] Rate: 61 P: 50 MO: 162 QRS: -9 QRSD: 78 T: 30 QT: 398 QTc: 403 Interpretive Statements SINUS RHYTHM NORMAL ECG Electronically Signed On 11-04-2019 7:07:54 CDT by Dickson Ware D.O.
[2019-11-03 18:42] VITALS: BP 188/89; PULSE 66; RESP 16; RESP 18; TEMP 36.9; O2SAT 98
[2019-11-03 18:44] LABS: Basophils Percent Auto 0.6 % (0.2-1.2); Eosinophils Absolute Auto 0.1 K/mm3 (0-0.3); Eosinophils Percent Auto 1.4 % (0-4.4); Hematocrit 37.7 % (37.0-47.0); Hemoglobin 13.1 g/dL (12.0-15.0); Immature Granulocyte Absolute 0.02 K/mm3 (0.00-0.031); Immature Granulocyte Percent A 0.4 % (0-0.5); Lymphocytes Absolute Auto 1.27 K/mm3 (0.9-3.2); Lymphocytes Percent Auto 25.8 % (18.3-44.2); Mean Corpuscular HGB Conc 34.7 g/dl (32-36); Mean Corpuscular Hemoglobin 31.3 pg (26-34); Mean Corpuscular Volume 90.2 fl (80-100); Mean Platelet Volume 11.2 fl (7.4-10.4); Monocytes Absolute Auto 0.5 K/mm3 (0.1-0.6); Monocytes Percent Auto 9.5 % (2.6-8.5); Neutrophils Absolute Auto 3.1 K/mm3 (1.3-6.7); Neutrophils Percent Auto 62.3 % (45.5-73.1); Platelet Count Result 171 k/mm3 (150-375); Red Blood Count 4.18 M/mm3 (4.2-5.4); Red Cell Distribution Width 14.6 % (11.5-14.5); White Blood Count 4.9 K/mm3 (4.5-10.0)
[2019-11-03 18:57] LABS: Blood Urea Nitrogen 11 mg/dL (7-17); Calcium 9.3 mg/dL (8.4-10.2); Carbon Dioxide 24 mmol/L (22-30); Chloride 107 mmol/L (98-107); Estimated CRCL calculation 75 ml/min; Estimated Glomerular Filt Rate > 60; Glucose 99 mg/dL (65-105); Potassium 3.9 mmol/L (3.4-5.0); Sodium 137 mmol/L (137-145)
--- NOTE | 2019-11-03 19:14 | ED.GENADULT ---
HPI - General Adult General Chief complaint: Unspecified Stated complaint: SOB, ABD pain Time Seen by Provider: 11/03/19 19:01 History of Present Illness HPI narrative: Patient presents with her son for multiple complaints. She has had shortness of breath some chest palpitations for 2 days. Not associated with fever sweats or wheezes. No coughing. She has a history of A. fib and is on Xarelto. She has diarrhea from the amoxicillin for 1 day. For yellow stools today. Making normal urine. She has a headache that is been going on for months. It is global without visual changes. She gives the headache pain 7 out of 10. she has bilateral ear pain left greater than right today it is only a 1 out of 10. She started amoxicillin yesterday for this. She used to have headaches infrequently, but now it is every day. She occasionally has dizziness. She complains of weight loss in the last couple months, and tells me her father of pancreatic cancer. She does not smoke drink or do drugs. 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 She has a history of hysterectomy and appendectomy. Related Data Home Medications Medication Instructions Recorded Confirmed cholecalciferol (vitamin D3) 1,000 unit PO DAILY 08/15/19 08/15/19 [Vitamin D3] levothyroxine 137 mcg PO DAILY 08/15/19 08/15/19 vitamin B complex-folic acid [B 1 tablet PO DAILY 08/15/19 08/15/19 Complex 100] lisinopril 10 mg PO 10/10/19 omeprazole 40 mg PO 10/10/19 amoxicillin 11/03/19 calcium carbonate [Tums] 200 mg PO BID 11/03/19 lorazepam 0.5 mg PO BID 11/03/19 Allergies Allergy/AdvReac Type Severity Reaction Status Date / Time Sulfa (Sulfonamide Allergy Mild Rash Verified 11/03/19 18:55 Antibiotics) Review of Systems Review of Systems: Narrative: CONSTITUTIONAL: Denies fever, or sweats. She did have chills yesterday for couple minutes. EYES: Denies visual changes, redness, or discharge. ENT: Denies rhinorrhea, congestion, sore throat. Bilateral ear pain for months. CARDIOVASCULAR: Denies chest pain, but has had palpitations. RESPIRATORY: Denies cough. GASTROINTESTINAL: She has abdominal pain, nausea, but not vomiting. GENITOURINARY: Denies dysuria or hematuria. SKIN: Denies rash or itching. MUSCULOSKELETAL: Denies back pain, joint pain, or myalgia. NEUROLOGIC: Denies numbness, or weakness. PSYCHIATRIC: Denies anxiety or depression. All systems reviewed & are unremarkable except as noted in HPI and below PMFSH Past Medical History Medical History Atrial fibrillation Back pain Fractured hip She had a small crack which was not repaired. History of palpitations Hypothyroidism Surgical History Surgical History History of hysterectomy Hx of appendectomy Family History Family History Mother Autoimmune adrenal atrophy Thyroid disease Father Pancreatic cancer COPD (chronic obstructive pulmonary disease) Sibling Heart disease Social History Social History Social History: Patient had lifelong exposure to smoke but did not smoke herself. She has 3 sons. She does not have a power tax associate attorney. She desires to be a full code. 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 No alcohol or illicit drugs. Her sister staying with her at this time. Smoking status: Never smoker Second hand tobacco smoke exposure: Yes Alcohol intake: never Substance use: never Substance use type: does not use Gender identity (if verbalized by the patient): Female Spiritual care concerns: No Agree to blood products: Yes Exam Narrative: Exam Narrative: GENERAL: Well-appearing, well-nourished, and in no acute distress. HEAD: Normocephalic, atraumatic. EYES: PERRLA and EOMI. ENT: Nares clear, no rhinorrhea or epistaxis. Mucous membranes moist. TMs are normal
--- NOTE | 2019-11-03 19:26 | PC.NURSE ---
Called lab to add on Trop I Baseline, BNP
[2019-11-03 19:47] LABS: NT Pro B Type Natriuretic Pept 182 PG/ML (5-100); Troponin I < 0.012 ng/mL (0.000-0.034)
[2019-11-03] MEDS: SODIUM CHLORIDE 0.9% IV 1,000 ML 999 ML IV CONT (20:21)
[2019-11-03 20:22] VITALS: BP 143/75; PULSE 61; RESP 11; TEMP 37.1; O2SAT 97
[2019-11-03] MEDS: METOCLOPRAMIDE HCL INJ 10 MG/2 ML VIAL IV PUSH (20:22)
[2019-11-03 21:50] VITALS: BP 148/57; PULSE 59; RESP 16; TEMP 36.7; O2SAT 97
== END 2019-11-03 22:13 | disposition home or self-care (01) ==
PROVIDERS: Emergency Medicine; Emergency Provider Emergency Medicine; PCP Family Medicine
DX: I50.9 Heart failure, unspecified (principal); R51 Headache; I48.91 Unspecified atrial fibrillation; Z79.01 Long term (current) use of anticoagulants; E03.9 Hypothyroidism, unspecified; Z77.22 Contact with and (suspected) exposure to environmental tobacco smoke (acute) (chronic)
CPT/HCPCS: 36415; 70450; 71046; 80048; 83880; 84484; 85025; 93005; 96361; 96374; 96375; 99284; J1200; J2765; J7030

== ENCOUNTER → 2020-03-04 12:55 | Outpatient (CLI) | payer MEDICARE, MEDICAID, SELFPAY ==
--- NOTE | ~2020-03-04 | US_ITS ---
EXAMINATION: US thyroid EXAM DATE: 03/04/2020 13:14 INDICATION: Nontoxic goiter. TECHNIQUE: Multiple grayscale and Doppler images of the thyroid were obtained (by a technologist who performed the scan) and subsequently reviewed. Individual nodules and recommendations may be reporte d in accordance with TI-RADS system as designated by the 2017 ACR White Paper TI-RADS committee. Comp arison is made to prior examination from 12/27/2009. FINDINGS: The right thyroid lobe measures 3.5 x 0.8 x 0.6 cm, the left measuring 2.4 x 0.6 x 0.8 cm. These dime nsions are well within normal size limits, smaller than typically seen. Mildly diffusely heterogeneou s thyroid echogenicity is expected amount of vascularity. No focal nodule is identified. IMPRESSION: Small, unremarkable thyroid tissue. Reviewed, dictated and finalized at location B.
== END ==
PROVIDERS: PCP Family Medicine; Visit Provider Internal Medicine Endocrinology, Diabetes & Metabolism
DX: E04.9 Nontoxic goiter, unspecified (principal)
CPT/HCPCS: 76536

== ENCOUNTER 2021-04-29 12:31 | Outpatient (CLI) | payer MEDICARE, MEDICAID, SELFPAY ==
--- NOTE | ~2021-04-29 | DEXA_ITS ---
Bone Density Report Name: Brandy Omalley Age: 80 Sex: Female Ethnicity: White Date of : 1940 Indication: osteopenia; monitoring treatment; height loss; prior fracture; hysterectomy; postmenopausal Referring Provider: Willam, Kassy Huerta Study: Bone densitometry was performed. Exam Date: April 29, 2021 Accession number: [id number] Bone Density: Region BMD T-score Z-score Classification AP Spine (L1, L4) 1.216 1.6 4.4 Normal Femoral Neck (Left) 0.522 -2.9 -0.5 Osteoporosis Total Hip (Left) 0.704 -2.0 0.3 Osteopenia Total Hip Bilateral Avg 0.726 -1.8 0.5 Osteopenia Femoral Neck (Right) 0.593 -2.3 0.1 Osteopenia Total Hip (Right) 0.747 -1.6 0.6 Osteopenia World Health Organization criteria for BMD impression classify patients as: Normal (T-score at or above -1.0), Osteopenia (T-score between -1.0 and -2.5), or Osteoporosis (T-score at or below -2.5). 10-year Fracture Risk: FRAX not reported because: Some T-score for Spine Total or Hip Total or Femoral Neck at or below -2.5 Treated for osteoporosis Previous Exams: Region Exam Age BMD T-score BMD Change BMD Change Date g/cm2 vs Baseline vs Previous AP Spine(L1, L4) 04/29/2021 80 1.216 1.6 0.069(6.0%)# 0.028(2.3%)* 04/06/2019 78 1.188 1.4 0.041(3.6%)# 0.070(6.3%)* 09/25/2016 76 1.118 0.7 -0.029(-2.6%)# -0.029(-2.6%)# 07/18/2008 68 1.147 1.0 Total Hip(Left) 04/29/2021 80 0.704 -2.0 -0.038(-5.1%)# -0.030(-4.1%)* 04/06/2019 78 0.734 -1.7 -0.007(-1.0%)# -0.005(-0.7%) 09/25/2016 76 0.739 -1.7 -0.002(-0.3%)# -0.002(-0.3%)# 07/18/2008 68 0.742 -1.6 Total Hip(Right) 04/29/2021 80 0.747 -1.6 -0.001(-0.2%)# -0.007(-0.9%) 04/06/2019 78 0.754 -1.5 0.005(0.7%)# -0.015(-2.0%) 09/25/2016 76 0.769 -1.4 0.020(2.7%)# 0.020(2.7%)# 07/18/2008 68 0.748 -1.6 *Denotes significance at 95% confidence level, LSC for AP Spine = 0.022 g/cm2, LSC for Total Hip = 0.027 g/cm2 Clinical Information Provided by Patient: Has had a low trauma fracture Is being treated for osteoporosis Has used the following medications: Fosamax (i.e. alendronate), Vitamin D, Calcium Has the following medical conditions: Hysterectomy Patient maximum height was 70 Menopause Age: 43 No regular weight bearing exercise Drinks caffeinated beverages Onset of menses at age 10 Number of children 3 Impression: The patient has established osteoporosis, based on
== END 2021-04-29 12:32 | disposition home or self-care (01) ==
LOC: ANHIMG 12:34
PROVIDERS: PCP Family Medicine; Visit Provider Internal Medicine Endocrinology, Diabetes & Metabolism
DX: M81.6 Localized osteoporosis [Lequesne] (principal); M85.851 Other specified disorders of bone density and structure, right thigh
CPT/HCPCS: 77080

== ENCOUNTER 2023-04-20 13:30 | Outpatient (RCR) | payer MEDICARE, MEDICAID, SELFPAY ==
--- NOTE | 2023-03-23 16:15 | OPREHPOC ---
Outpatient Therapy Plan of Care This is a Multidisciplinary Plan of Care that may contain components documented by all disciplines (PT, OT, and ST.) PT Problem 1 PT Problem #1 Knowledge Deficit PT Goal 1 Goal 1* indep with HEP PT Problem 2 PT Problem #2 Pain PT Goal 1 Goal 1* pt report pain at worst rating of 3/10 2* pt report walking/standing activity tolerance of 30 min 3* Oswestry self assessment functional score of 32% limitation in activity level PT Problem 3 PT Problem #3 Impaired Functional Mobil PT Goal 1 Goal 1* pt transfer sit to stand from 18 seat with use of 1 UE 2* pt perform 20 reps of supine LE exercises 3* 2 minute walking test distance of 325' with assistive device 4* up/down 8 steps with use of 1 UE on hand railing
--- NOTE | 2023-03-23 16:16 | PTOPEVAL1 ---
Assessment and note entered by Layla Ponce, PT Evaluation Information Assessment Status Evaluation Diagnosis degenerative disc lumbar Onset August 2022 Subjective Information history of back pain; intermittent flare ups; no trauma or injury to back; no recent imaging done; have not been to an ortho dr about her hips or knees; years ago saw a back dr; had PT at another facility--about 10 yr ago, helped but could not state what helped, had not kept up with the exercises at home; ACTIVITY: indep with in home tasks; do not do any regular fitness exercises; have 3 flights of stairs. No falls in the past year. GOAL: get legs stronger, have less pain in back and legs; Reported Pain Level Pain Score Self Report- back and leg pain Additional Pain Score Comments pain range in the past week 0-5/10; stiff, want to go to bed and find a good position to stay in, do not want to sit on R side; Oswestry score of 44% legs are weak, sore and wobbly; knee pain bilateral increase pain- walking/stand tolerance 20 min decrease pain-sit/rest, tylenol helps little; lie down, heat Assessment PT Clinical Summary Brandy has the diagnosis of lumbar degenerative disc. She reports issues with balance, gait, stairs, back and leg pain. At home, she can do all her self care and in home tasks, with increase pain and frequent rest periods. Pain in back is increase with standing/walking 20 min and eased with sitting down. Pain and tenderness over both legs to touch, with swelling of her legs. With the evaluation, she has poor standing posture with valgus of both knees, flexion of both knees decreased strength of trunk and legs, 2 minute walking test distance with cane of 250'; on stairs she requires both UE on railing. Education and discussed with pt gait with cane, wheeled walker and safety on stairs. Skilled PT services are indicated for modalities PRN for pain in her back, therapeutic exercises to increase
--- NOTE | 2023-04-15 09:56 | PCPTNOTE ---
pt called and canceled due to illness;
--- NOTE | 2023-04-20 14:14 | PTOPDC ---
Assessment and note entered by Layla Ponce, PT Discharge Information Assessment Status Discharge Diagnosis degenerative disc lumbar Onset August 2022 Subjective Information feel like she is about the same, doing the exercises but still weak; use the cane all the time--in the house and when go out use the shopping cart to lean on; getting a second railing on staircase at home; Reported Pain Level Pain Score Self Report Additional Pain Score Comments pain range 0-6/10 in the past week; standing/ walking activity tolerance of 20 minutes due to back pain; Assessment PT Clinical Summary Carina has received 7 PT sessions. Compared to the initial evaluation: 2 minute walking test distance increased from 250' to 310'; continues to use the cane, is not interested in a wheeled walker; increase strength of hips and LE with sit/stand transfer with use of 1 UE and mat exercises; education completed for HEP and back education. pain rating at worst from 5 to 6/10; self assessment Oswestry rating of 44% to 46% limitation in activity level; reported walking/ standing tolerance is same at 20 minutes The goals were partially met. Discharge PT services. She is to continue with her home exercises and monitor back pain with more activity. Also discussed water exercises with her Plan of Care PT Services Indicated No
== END 2023-04-20 14:30 | disposition home or self-care (01) ==
LOC: ANHPT 13:30
PROVIDERS: PCP Family Medicine; Visit Provider Family Medicine
DX: M51.36 Other intervertebral disc degeneration, lumbar region (principal)
CPT/HCPCS: 97110; 97112; 97116; 97162; 97530

== ENCOUNTER 2023-08-05 13:44 | Outpatient (CLI) | payer MEDICARE, MEDICAID, SELFPAY ==
--- NOTE | ~2023-08-05 | DEXA_ITS ---
Bone Density Report Name: BRENDEN FAN Age: 83 Sex: Female Ethnicity: White Date of : 1940 Indication: postmenopausal; screening for osteoporosis; height loss; inflammatory bowel disease; prior fracture; hysterectomy; Referring Provider: JOSELYN, SUREKHA Love Study: Bone densitometry was performed. Exam Date: August 05, 2023 Accession number: [id number] Bone Density: Region BMD T-score Z-score Classification AP Spine(L1, L3, L4) 1.210 1.4 4.3 Normal Femoral Neck (Left) 0.598 -2.3 0.3 Osteopenia Total Hip (Left) 0.724 -1.8 0.5 Osteopenia Femoral Neck (Right) 0.602 -2.2 0.3 Osteopenia Total Hip (Right) 0.733 -1.7 0.6 Osteopenia Total Hip Mean 0.728 -1.8 0.6 Osteopenia World Health Organization criteria for BMD impression classify patients as: Normal (T-score at or above -1.0), Osteopenia (T-score between -1.0 and -2.5), or Osteoporosis (T-score at or below -2.5). 10-year Fracture Risk: FRAX not reported because: Prior hip or vertebral fracture Clinical Information Provided by Patient: Have had a previous hip or vertebral fracture Has had a low trauma fracture Has used the following medications: Vitamin D Has the following medical conditions: Inflammatory bowel diseases, Hysterectomy Patient maximum height was 70.5 Menopause Age: 43 No regular weight bearing exercise Drinks caffeinated beverages Onset of menses at age 10 Number of children 3 Impression: The patient has low bone mass, based on the Left Femoral Neck T-score. The patient has risk factors, including: previous fracture. Discussion: INCREASED RISK OF FRACTURE DUE TO HISTORY OF FRACTURE. The patient's previous fracture puts the patient at high risk of a future fracture. In untreated patients, the risk of osteoporotic fracture increases approximately two-fold for each 1.0 SD decrease in T-score. Low bone density is not the only risk factor for fracture; also consider factors such as patient's age, frailty or poor health, risk of falling, risk of injury, previous osteoporotic fracture, family history of osteoporosis, cigarette smoking, low body weight, etc. Not everyone with a low trauma fracture has osteoporosis; osteomalacia and other metabolic bone disorders should also be considered. Patients who have osteoporosis should be evaluated for specific diseases and conditions (secondary causes) that may cause or contribute to bone loss and fracture risk. National Osteoporosis Foundation (NOF) recommends pharmacologic intervention for patients with a prior hip or vertebral fracture regardless of BMD T-score. The patient should follow a healthful lifestyle (good nutrition with adequate calcium and vitamin D, and appropriate weight-bearing exercise). Follow-Up: Consider a repeat BMD and Vertebral Fracture Assessment (VFA) exam in
== END 2023-08-05 13:45 | disposition home or self-care (01) ==
PROVIDERS: PCP Family Medicine; Visit Provider Family Medicine
DX: Z78.0 Asymptomatic menopausal state (principal); M85.852 Other specified disorders of bone density and structure, left thigh; M85.851 Other specified disorders of bone density and structure, right thigh
CPT/HCPCS: 77080

== ENCOUNTER 2024-11-20 17:59 | Emergency (ER) | payer MEDICARE, MEDICAID, SELFPAY ==
--- NOTE | 2024-11-20 18:01 | ED.ABDPAIN ---
HPI - Abdominal Pain General Chief Complaint: Abdominal Pain Stated Complaint: abdomen pain Time Seen by Provider: 11/20/24 18:01 Source: patient Mode of arrival: ambulatory Limitations: no limitations History of Present Illness HPI narrative: Patient is an 84-year-old female who presents with 2 weeks of abdominal cramping, bloating, gas, belching. Patient had diarrhea at the start of symptoms. Patient states symptoms significantly worsen last night with pain being 9/10 to lower abdomen. Patient is also nauseous. Patient has history of diverticulitis on colonoscopy. Denies any burning or urgency, malodorous, cloudy or blood in urine. Has had frequency, low back pain, fever. Has taken Pepto-Bismol and Tylenol. Patient last bowel movement was last night, normal, formed, no blood or mucus. History of appendectomy Related Data Home Medications ?Medication ?Instructions ?Recorded ?Confirmed ?Last Taken ?Type cholecalciferol (vitamin D3) 25 1,000 unit PO DAILY 08/15/19 08/15/19 Unknown History mcg (1,000 unit) capsule (Vitamin D3) levothyroxine 137 mcg tablet 137 mcg PO DAILY 08/15/19 08/15/19 Unknown History vitamin B complex-folic acid 0.4 1 tablet PO DAILY 08/15/19 08/15/19 Unknown History mg tablet (B Complex 100) lisinopril 5 mg tablet 10 mg PO 10/10/19 Unknown History omeprazole 40 mg capsule,delayed 40 mg PO 10/10/19 Unknown History release amoxicillin 500 mg capsule 11/03/19 Unknown History calcium carbonate (Tums) 200 mg PO BID 11/03/19 Unknown History lorazepam 0.5 mg tablet 0.5 mg PO BID 11/03/19 Unknown History levothyroxine 88 mcg tablet mcg 11/20/24 Unknown History (Synthroid) rosuvastatin 20 mg tablet mg 11/20/24 Unknown History Allergies Allergy/AdvReac Type Severity Reaction Status Date / Time Sulfa (Sulfonamide Allergy Mild Rash Verified 11/20/24 18:20 Antibiotics) Review of Systems Review of Systems: All systems reviewed & are unremarkable except as noted in HPI and below Constitutional: Constitutional: Denies body ache(s), Denies chills, Denies fatigue, Denies fever(s), Denies headache(s), Denies malaise and Denies weakness Eyes: Eyes: Denies blurry vision, Denies irritation and Denies loss of vision ENT: Denies otalgia, Denies headache(s), Denies nasal discharge, Denies sinus pain and Denies sore throat Cardiovascular: Cardiovascular: Denies chest pain, Denies irregular heart rhythm and Denies dyspnea Respiratory: Respiratory: Denies dyspnea Gastrointestinal: Gastrointestinal: Reports abdominal pain, Denies melena, Reports bloating, Denies hematochezia, Reports GI cramping, Denies diarrhea, Reports nausea and Denies vomiting Genitourinary: Genitourinary: Denies hematuria, Reports nocturia, Denies dysuria, Reports pelvic pain, Reports flank pain and Denies urinary urgency Musculoskeletal: Musculoskeletal: Denies back pain, Denies myalgias and Denies arthralgias Integumentary/Breasts: Skin/Breast: Denies pruritus and Denies rash Neurologic: Denies headache(s), Denies loss of vision and Denies weakness Psychiatric: Psychiatric: Reports no additional psychiatric complaints Endocrine: Endocrine: Denies fatigue PMF Past Medical History Medical History (Updated 11/20/24 @ 18:49 by Annette Hewitt APRN) Fractured hip She had a small crack which was not repaired. Atrial fibrillation History of palpitations Hypothyroidism Back pain Surgical History Surgical History History of hysterectomy Hx of appendectomy Family History Family History Mother Autoimmune adrenal atrophy Thyroid disease Father Pancreatic cancer COPD (chronic obstructive pulmonary disease) Sibling Heart disease Social History Social History Social History: Patient had lifelong exposure to smoke but did not smoke herself. She has 3 sons. She does not have a power patent attorney. She desires to be a full code. 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 No alcohol or illicit drugs. Her sister staying with her at this time. Smoking status: Never smoker Second hand tobacco smoke exposure: Yes Alcohol intake: never Substance use: never Substance use type: does not use Living arrangements: with family Occupation/Education: retired Gender identity (if verbalized by the patient): Female Spiritual care concerns: No Agree to blood products: Yes Comments At time of signature, agree with nursing past medical, surgical, social and family history. There is no relevant family history pertinent to the presenting complaint. Exam Const: General: cooperative, healthy appearing, comfortable, no acute distress and well nourished Nutritional Appearance: well nourished Orientation/consciousness: patient oriented x3 Limitations: no limitations HENMT: Head: normal to inspection, normocephalic and atraumatic Ears: hearing grossly normal bilaterally and external ears normal Face/Nose/Sinus: Normal external nose present, normal facial exam and face symmetric Face and sinus: normal facial exam and face symmetric Mouth: Yes lip normal Eyes: General: appearance normal, both eyes and all related structures Alignment and Position: alignment normal and position normal Periorbital: periorbital findings normal Eyelids: eyelids normal Pupils: Equal, round and reactive pupils present EOM: EOMs intact bilaterally Neck: Neck: normal visual inspection, full ROM and supple Chest: Chest palpation & inspection: normal inspection of the chest Resp: Effort & Inspection: normal respiratory effort and able to speak in complete sentences Auscultation: clear to auscultation bilaterally Cardio: Rate: regular rate Rhythm: regular rhythm Heart sounds: S1 normal heart sound present and S2 normal heart sound present GI: Inspection: normal to inspection GI Palp: Yes abdominal tenderness, Yes Soft to palpation, Yes Tenderness to palpation present (GI) (Bilateral lower quadrant) and No Guarding due to palpation present (GI) Auscultation: normal bowel sounds Rectal Exam: deferred Skin: General skin exam: normal color and no rashes or lesions noted Neuro: General: patient oriented x3 and moves all extremities Cranial nerves: Yes Equal, round and reactive pupils present Speech: normal speech Gait exam (Neuro): Normal gait present Extrem: General: normal to inspection, full ROM and no edema Psych: Appearance: grossly normal and well kempt Mental Status: mental status grossly normal Speech and movement: Normal speech and movement present Affect: normal affect Attitude: cooperative Thought process: Normal thought process present Course Course Emergency Course: Patient being transferred to [facility] for further workup and evaluation. Patient requires labs and imaging to rule out diverticulitis or other abdominal infection. Concern being fever and increased abdominal pain with tenderness on palpation Portions of this record may have been created with voice recognition software Level of Care: Express Care Visit Vital Signs Vital signs: Reviewed Transfer Transfered to: [facility] Transportation: Other (Private auto, son driving) Transfer rationale: Patient being transferred to [facility] for further workup and evaluation. Patient requires labs and imaging to rule out diverticulitis or other abdominal infection. Concern being fever and increased abdominal pain with tenderness on palpation Accepting physician: Mile MDM - Abdominal Pain MDM Narrative Medical decision making narrative: Patient being transferred to [facility] for further workup and evaluation. Patient requires labs and imaging to rule out diverticulitis or other abdominal infection. Concern being fever and increased abdominal pain with tenderness on palpation. Patient does have appointment scheduled with PCP on the . Differential Diagnosis Differential diagnosis: Likely abdominal pain, constipation, diverticulitis, gastroenteritis, small bowel obstruction and other (Diverticulitis, UTI) Medical Records Attestation: I reviewed the patient's medical records. Discharge Plan Discharge Clinical Impression: Abdominal pain Qualifiers: Abdominal location: lower abdomen, unspecified Qualified Code(s): R10.30 - Lower abdominal pain, unspecified Fever Qualifiers: Fever type: unspecified Qualified Code(s): R50.9 - Fever, unspecified Patient Disposition: Acute Care Hospital Condition: Stable Patient Language: Japanese Prescriptions: No Action levothyroxine 137 mcg tablet 137 mcg PO DAILY cholecalciferol (vitamin D3) [Vitamin D3] 25 mcg (1,000 unit) Capsule 1,000 unit PO DAILY vitamin B complex-folic acid [B Complex 100] 0.4 mg Tablet 1 tablet PO DAILY metoprolol tartrate 25 mg Tablet 25 mg PO Q12HR 30 Days Qty: 60 0RF Xarelto 20 mg Tablet 20 mg PO DAILY@1700 30 Days Qty: 30 0RF omeprazole 40 mg capsule,delayed release(DR/EC) 40 mg PO lisinopril 5 mg tablet 10 mg PO amoxicillin 500 mg capsule lorazepam 0.5 mg tablet 0.5 mg PO BID calcium carbonate [Tums] 200 mg calcium (500 mg) Tablet,Chewable 200 mg PO BID Follow-up/Referrals: Alen,MINESH Denis [Primary Care Provider] - Time of Disposition: 18:49
[2024-11-20 18:11] VITALS: BP 150/56; PULSE 100; RESP 16; TEMP 37.1; O2SAT 98
[2024-11-20 18:27] LABS: EDUAAPPEAR Cloudy; EDUABILI 1+ (Negative); EDUABLOOD Negative (Negative); EDUACOLOR1 Yellow; EDUAGLUCOSE Negative (Negative); EDUAKETONE Negative (Negative); EDUALEUKO 1+ (Negative); EDUANITRATE Negative (Negative); EDUAPH 5.5; EDUAPROTEIN 1+ (Negative); EDUAUROBILI 0.2
== END 2024-11-20 18:52 | disposition short-term general hospital (02) ==
PROVIDERS: Emergency Provider Nurse Practitioner Family; PCP Physician Assistant
DX: R10.30 Lower abdominal pain, unspecified (principal); R50.9 Fever, unspecified; I48.91 Unspecified atrial fibrillation; E03.9 Hypothyroidism, unspecified; Z79.899 Other long term (current) drug therapy
CPT/HCPCS: 81003; 99212; G0463